=== PATIENT | male | born 1970 | race Caucasian/White ===

== ENCOUNTER 2016-08-28 12:54 | Observation (INO) | payer BC ==
[2016-08-28] MEDS ORDERED: DiphenhydrAMINE 50 mg/ml Inj ONE (13:00)
[2016-08-28] MEDS ORDERED: Albuterol 0.042% Inhal Sol (1.25 mg/3 mL) UD ONE (13:01)
[2016-08-28] MEDS ORDERED: Albuterol-Ipratrop 3 mg / 0.5 (3 ml) UD ONE (13:02)
[2016-08-28 13:31] VITALS: BMI 31.3
[2016-08-28] MEDS ORDERED: Albuterol-Ipratrop 3 mg / 0.5 (3 ml) UD INH STA ×3 (13:33→13:34)
[2016-08-28] MEDS ORDERED: DiphenhydrAMINE 50 mg/ml Inj IVP STA ×2 (13:33)
[2016-08-28] MEDS ORDERED: Sodium Chloride 0.9% 1,000 ML IV STA ×2 (13:46→16:48)
--- NOTE | 2016-08-28 13:53 | ED PDOC ---
HPI: SOB/CHF/COPD Time Seen by Provider: 08/28/16 13:07 Chief Complaint (Nursing): Respiratory Distress Chief Complaint (Provider): Respiratory Distress History Per: Patient History/Exam Limitations: no limitations Onset/Duration Of Symptoms: Days Current Symptoms Are (Timing): Still Present Initiating Event: Upper Respiratory Illness Quality: Tightness Severity: Mild Associated Symptoms: denies: Productive Cough, Light-headedness Additional Complaint(s): Patient is a 46 year old male who was referred to ED by Dr. Ritter for coughing for 4 days. Patient states he was given a medication, Incruse Ellipta but after one puff the cough worsened. Denies fever, chest pain, hemoptysis or back pain Past Medical History Reviewed: Historical Data, Nursing Documentation, Vital Signs Vital Signs: Last Vital Signs Temp Pulse 130 H 08/28/16 15:33 Resp 16 08/28/16 15:33 BP 143/91 H 08/28/16 15:33 Pulse Ox 100 08/28/16 16:51 - Medical History PMH: Asthma, Diabetes, HTN - Surgical History Surgical History: No Surg Hx - Family History Family History: States: No Known Family Hx - Living Arrangements Living Arrangements: With Family - Home Medications Home Medications: Ambulatory Orders Medication Instructions Recorded Altace 01/22/13 Insulin Human Regular 01/22/13 Naproxen [Naprosyn] 500 mg PO TID #21 tab 01/22/13 glucOPHAGE 01/22/13 Chlorpheniramine Polistirex/ 5 ml PO Q12 #80 ml 10/31/14 [Tussionex Pennkinetic 8 mg/5 ml-10 mg/5 ml 5 ] Prednisone 20 mg PO DAILY #5 tab 10/31/14 - Allergies Allergies/Adverse Reactions: Allergies Allergy/AdvReac Type Severity Reaction Status Date / Time iodine Allergy RASH Verified 08/28/16 13:15 Curb-65 Severity Score - CURB-65 Severity Score Confusion: No Bun >19mg/dl (>7mmol/L): No Respiratory Rate greater than/equal to 30: No Systolic BP <90 or Diastolic BP less than/equal 60mmHg: No Age >64: No Curb-65 Score: 0 Percentage 30-day mortality: 0.6% Review of Systems ROS Statement: Except As Marked, All Systems Reviewed And Found Negative Constitutional: Negative for: Fever, Chills Cardiovascular: Negative for: Chest Pain, Palpitations Respiratory: Positive for: Cough. Negative for: Shortness of Breath, Sputum Gastrointestinal: Negative for: Vomiting Musculoskeletal: Negative for: Neck Pain Skin: Negative for: Rash Neurological: Negative for: Weakness, Numbness Physical Exam - Reviewed Nursing Documentation Reviewed: Yes Vital Signs Reviewed: Yes - Physical Exam Appears: Positive for: Non-toxic, No Acute Distress Skin: Positive for: Normal Color, Warm Eye Exam: Positive for: Normal appearance Neck: Positive for: Normal, Painless ROM Cardiovascular/Chest: Positive for: Regular Rate, Rhythm, Tachycardia. Negative for: Murmur Respiratory: Positive for: Normal Breath Sounds (actively coughing but speaking in full sentences ). Negative for: Respiratory Distress Back: Positive for: Normal Inspection Extremity: Positive for: Normal ROM. Negative for: Pedal Edema Neurologic/Psych: Positive for: Alert, Oriented - Laboratory Results Result Diagrams: 08/28/16 13:50 08/28/16 13:50 - ECG O2 Sat by Pulse Oximetry: 100 (RA) Pulse Ox Interpretation: Normal - Radiology X-Ray: Read By Radiologist (Suboptimal study. No definite evidence of pneumonia. ) - Progress Re-evaluation Time: 18:37 Condition: Improved (Speaking full sentences, no longer coughing, HR 110.) - Physician Consult Information Physician Contacted: Donald Ritter Outcome Of Conversation: Recommends UDS, Solumedrol 125 mg IV and 1 L NS over 2 hours, if stable can d/c home with ENT (Dr. Escobedo) referral. Medical Decision Making Medical Decision Making: Time: 1330 Initial impression: Likely Bronchospasm Initial plan: -- EKG -- CMP -- CBC -- CXR -- Bendryl, Duoneb x3, NSF and Pepcid Scribe Attestation: Documented by Charlene Rogers acting as a scribe for Yelitza Ramires MD MD Scribe Attestation: All medical record entries made by the Scribe were at my direction and personally dictated by me. I have reviewed the chart and agree that the record accurately reflects my personal performance of the history, physical exam, medical decision making, and the department course for this patient. I have also personally directed, reviewed, and agree with the discharge instructions and disposition. ED OBSERVATION Time of observation admission: 14:00 - Observation admission statement Patient is being placed in observation because:: Cough Disposition - Clinical Impression Clinical Impression: Cough due to bronchospasm - Patient ED Disposition Is Patient to be Admitted: No - Disposition Disposition: Routine/Home Disposition Time: 18:37 Condition: IMPROVED
[2016-08-28 14:10] LABS: BASO # 0.1 K/uL (0.0-0.2); BASO % 0.5 % (0.0-2.0); EOS # 0.2 K/uL (0.0-0.7); EOS % 1.7 % (0.0-4.0); HEMATOCRIT 43.9 % (35.0-51.0); LYMPH # 1.6 K/uL (1.0-4.3); LYMPH % 16.9 % (20.0-40.0); MEAN CELL VOLUME 83.1 fl (80.0-94.0); MEAN CORPUSCULAR HEMOGLOBIN 27.5 pg (27.0-31.0); MEAN CORPUSCULAR HGB CONC 33.1 g/dL (33.0-37.0); MEAN PLATELET VOLUME 7.9 fl (7.2-11.7); MONO # 0.7 K/uL (0.0-0.8); MONO % 7.8 % (0.0-10.0); NEUT # 6.9 K/uL (1.8-7.0); NEUT % 73.1 % (50.0-75.0); NRBC % 0.1 % (0.0-0.0); RED CELL DISTRIBUTION WIDTH 13.9 % (11.5-14.5); WHITE BLOOD COUNT 9.4 K/uL (4.8-10.8)
[2016-08-28 14:23] LABS: ALB/GLOB RATIO 0.9 (1.0-2.1); ALKALINE PHOSPHATASE 101 U/L (38-126); ALT/SGPT 23 U/L (21-72); AST/SGOT 33 U/L (17-59); BILIRUBIN,TOTAL 0.6 mg/dl (0.2-1.3); BLOOD UREA NITROGEN 17 mg/dl (9-20); CALCIUM 9.9 mg/dL (8.4-10.2); CARBON DIOXIDE 22 mmol/L (22-30); CHLORIDE 102 mmol/L (98-107); GFR AFRICAN-AMERICAN > 60; GLUCOSE,RANDOM 196 mg/dL (75-110); POTASSIUM 3.7 MMOL/L (3.6-5.0); SODIUM 141 mmol/l (132-148); TOTAL PROTEIN 8.6 G/DL (6.3-8.2)
--- NOTE | 2016-08-28 16:03 | RAD ---
HISTORY: Cough COMPARISON: Comparison is made to 10/31/2014 FINDINGS: LUNGS: Suboptimal expiratory view of the chest. Note evidence of focal consolidation. PLEURA: No significant pleural effusion identified, no pneumothorax apparent. CARDIOVASCULAR: Normal. OSSEOUS STRUCTURES: No significant abnormalities. VISUALIZED UPPER ABDOMEN: Normal. OTHER FINDINGS: None. IMPRESSION: Suboptimal study. No definite evidence of pneumonia.
[2016-08-28 18:47] VITALS: TEMP 98.9
[2016-08-28 20:59] VITALS: BP 136/71; PULSE 92; RESP 18; O2SAT 96
--- NOTE | 2016-08-29 07:10 | CARD ---
APPROVED REPORT EKG Measurement Heart [id number] <Conclusion> Sinus tachycardia Moderate voltage criteria for LVH, may be normal variant T wave abnormality, consider inferior ischemia Abnormal ECG
== END 2016-08-28 20:57 | disposition home or self-care (01) ==
LOC: H.ER 12:54 → H.EROBSV 14:00
PROVIDERS: ADMIT Emergency Medicine; ATTEND Emergency Medicine
DX: J45.909 Unspecified asthma, uncomplicated (principal); E11.9 Type 2 diabetes mellitus without complications; I10 Essential (primary) hypertension; Z91.041 Radiographic dye allergy status
CPT/HCPCS: 71010; 80053; 85025; 85378; 93005; 96361; 96374; 96375; 99282; G0378; G0480; J1200; J2930; J7040